=== PATIENT | female | born 1985 | race African-American/Black ===

== ENCOUNTER 2017-08-23 16:52 | Emergency (ER) ==
[2017-08-23 16:57] VITALS: BMI 36.9
[2017-08-23 18:55] LABS: BASOPHILS % (AUTO) 0.2 % (0.0-3.0); EOSINOPHILS # (AUTO) 0.2 K/ul (0.0-0.7); EOSINOPHILS % (AUTO) 1.7 % (0.0-7.0); HEMATOCRIT 39.9 % (37.0-47.0); HEMOGLOBIN 13.3 g/dl (12.0-16.0); IMMATURE GRANULOCYTE % (AUTO) 0.3 % (0.0-5.0); LYMPHOCYTES # (AUTO) 2.4 K/uL (0.60-3.4); MEAN CORPUSCULAR HEMOGLOBIN 30.1 pg (27.0-31.0); MEAN CORPUSCULAR HGB CONC 33.3 (31.8-35.4); MEAN CORPUSCULAR VOLUME 90.3 fl (81.0-99.0); MONOCYTES # (AUTO) 0.7 K/uL (0.4-2.0); NEUTROPHILS # (AUTO) 6.5 K/ul (2.0-6.9); NEUTROPHILS % (AUTO) 66.8; PLATELET COUNT 321 10^3/uL (140-440); RED BLOOD COUNT 4.42 10^6/ul (4.20-5.40); WHITE BLOOD COUNT 9.79 K/ul (4.6-10.2)
[2017-08-23 19:06] LABS: BILIRUBIN,URINE Negative (NEGATIVE); KETONES,URINE Negative (NEGATIVE); LEUKOCYTE ESTERASE ,URINE Negative (NEGATIVE); NITRITE,URINE Negative (NEGATIVE); PH,URINE 5.5 (5-9); PROTEIN,URINE Negative (NEGATIVE); URINE, BLOOD Negative (NEGATIVE)
[2017-08-23 19:09] LABS: URINE PREGNANCY INTERNAL QC INTERNAL QC VALID
[2017-08-23 19:10] LABS: ADD URINE MICROSCOPIC NO
[2017-08-23 19:12] LABS: ALBUMIN 3.6 g/dL (3.4-5.0); ALBUMIN/GLOBULIN RATIO 0.92; ANION GAP 12.8; BILIRUBIN,TOTAL 0.31 mg/dL (0.00-1.20); BUN/CREATININE RATIO 9.19; CALCIUM 9.7 mg/dL (8.2-10.2); CREATININE 0.87 mg/dL (0.60-1.30); POTASSIUM 3.8 mmol/L (3.5-5.10); TOTAL PROTEIN 7.5 g/dL (6.4-8.2)
[2017-08-23 19:24] LABS: ERYTHROCYTE SEDIMENTATION RATE 24 mm/hr (0-20); ESR INTERNAL QC INTERNAL QC VALID
--- NOTE | 2017-08-23 19:48 | CT ---
EXAM: Noncontrast CT of the abdomen and pelvis. HISTORY: Left lower quadrant pain. COMPARISON: None. TECHNIQUE: Contiguous axial images at 3 mm intervals were obtained from lung bases through the pelvi s. No contrast was given. Coronal reformats were reviewed. FINDINGS: The study is limited without contrast. CHEST: The lung bases show no lobar consolidation or effusion. The heart size is within normal limi ts. ABDOMEN: Evaluation of the soft tissue organs is limited without contrast. LIVER: Noncontrast images of the liver show no solid mass lesion or intrahepatic ductal dilatation. BILIARY: The gallbladder is normally distended. No gallstones are noted. No pericholecystic fluid or inflammation. The common bile duct is normal. SPLEEN: The spleen is unremarkable. PANCREAS: The pancreas shows no mass lesion or peripancreatic inflammation. ADRENAL GLANDS: The adrenal glands are normal. RENAL: The kidneys show no hydronephrosis or nephrolithiasis. There are no obstructing ureteral sto sammie. No solid mass lesions are identified. RETROPERITONEUM: The aorta is unopacified. No aneurysm is identified. No aortic calcifications are seen. There is no retroperitoneal or mesenteric adenopathy. BOWEL: The bowel is unopacified which limits evaluation. The cecum extends into the deep pelvis, pos terior to the bladder and uterus. The appendix appears enlarged measuring up to 16 mm with an append icolith. Surround inflammatory changes are seen. The appendix appears to extend to the left side of the pelvis. However, there are unopacified loops of small bowel in this area which makes identifica tion of the appendix. There is a trace of fluid in the deep pelvis with no evidence of abscess forma tion. There is no free air. PELVIS: BLADDER: The bladder is well distended and appears normal. GENITOURINARY STRUCTURES: The uterus and ovaries are unremarkable. OSSEOUS STRUCTURES: The osseous structures are normal for age. IMPRESSION 1. Limited study without IV and enteric contrast. 2. The cecum extends into the deep pelvis, posterior to the uterus and bladder. The appendix appear s extensive left side is enlarged measuring up to 1.7 cm with an appendicolith. On the sagittal view, this appears to be separate from the adjacent small bowel loops. There is some surrounding inflammat ion. There are loops of small bowel in this area which limit evaluation. 3. Trace amount of free fluid the deep pelvis. Critical result: Appendicitis. The appendix is located in the left side of the pelvis. These findings were discussed with Dr. Sanford on 08/23/2017 at 7:41 p.m.
--- NOTE | 2017-08-23 19:48 | ED.PDOC ---
General ED Provider: Dr. ROSSANA VELASCO-ER Chief Complaint: Back Pain Stated Complaint: narinder been hurting on my left side into my back for 4 days Time Seen by Physician: 16:55 Mode of Arrival: Walk-In Information Source: Patient Exam Limitations: No limitations Nursing and Triage Documentation Reviewed and Agree: Yes GI Complaint Exam - Abdominal Pain Complaint/Exam Onset: Gradual Duration: 4 days Symptoms Are: Still present Timing: Intermittent Initial Severity: Mild Current Severity: Mild Location of Pain: Discrete, LLQ Radiates To: Reports: Back Character: Reports: Dull, Aching, Cramping Alleviating: Reports: None Associated Signs and Symptoms: Reports: Back pain, Decreased appetite, Nausea, Decreased activity. Denies: Diaphoresis, Fever, Cough, Chest pain, Dizziness, Constipation, Blood in stool, Dysuria, Urinary frequency, Decreased urine output , Vaginal bleeding, Vaginal discharge, Vomiting, Diarrhea, Sore throat Ovarian Torsion Risk Factors: Reports: Reproductive age Surgical Obstruction Risk Factors: Reports: Prior abdominal surgery (she has no details--?[facility]) Patient Rh Status: Unknown Differential Diagnoses: Appendicitis, Constipation, Pancreatitis, Ureteral Stone , UTI, Ovarian Cyst Review of Systems - Review Of Systems Constitutional: Reports: No symptoms Eyes: Reports: No symptoms Ears, Nose, Mouth, Throat: Reports: No symptoms Respiratory: Reports: No symptoms Cardiac: Reports: No symptoms GI: Reports: Abdominal pain, Nausea : Reports: No symptoms Musculoskeletal: Reports: No symptoms Skin: Reports: No symptoms Neurological: Reports: No symptoms Endocrine: Reports: No symptoms Hematologic/Lymphatic: Reports: No symptoms All Other Systems: Reviewed and Negative Past Medical History - Past Medical History Previously Healthy: Yes Endocrine: Reports: None Cardiovascular: Reports: None Respiratory: Reports: None Hematological: Reports: None Gastrointestinal: Reports: None Genitourinary: Reports: None Neuro/Psych: Reports: None Musculoskeletal: Reports: None Cancer: Reports: None Last Menstrual Period: 3 WEEKS AGO - Surgical History General Surgical History: Reports: Lap Band - Family History Family History: Reports: Unknown - Social History Smoking Status: Current every day smoker, Heavy tobacco smoker Hx Substance Use: No Alcohol Screening: Occasionally Lives: With family Physical Exam - Physical Exam Appearance: Well-appearing, No pain distress, Well-nourished Pain Distress: Mild Eyes: JENNY, EOMI, Conjunctiva clear ENT: Ears normal, Nose normal, Oropharynx normal Neck: Supple Respiratory: Airway patent, Breath sounds clear, Breath sounds equal, Respirations nonlabored Cardiovascular: RRR, Pulses normal, No rub, No murmur GI/: Soft, Nontender, No masses, Bowel sounds normal, No Organomegaly, Tender Musculoskeletal: Normal strength Skin: Warm, Dry, Normal color Neurological: Sensation intact, Motor intact, Reflexes intact, Cranial nerves intact, Alert, Oriented Psychiatric: Affect appropriate, Mood appropriate, Anxious Interpretation - Radiology Interpretation Radiology Interpretation By: Radiologist Radiology Results: Positive Exam Interpreted: CT Scan ("left sided appendicitis") Re-Evaluation - Re-Evaluation Time of Re-Evaluation: 19:49 Status: Unchanged Vital Signs Stable: Yes Pain Level: 1 Appearance: NAD Lungs: Clear Skin: Warm and Dry Neuro: Alert and Oriented X3 CV: RRR Physician Notification - Case Discussed Physician Notified: dr carlos---accepted for the er Time of Notification: 19:57 Critical Care Note - Critical Care Note Total Time (mins): 0 Course - Course Hematology/Chemistry: 08/23/17 18:49 08/23/17 18:49 Orders, Labs, Meds: Lab Review 08/23/17 08/23/17 08/23/17 18:49 18:49 18:49 WBC 9.79 RBC 4.42 Hgb 13.3 Hct 39.9 MCV 90.3 MCH 30.1 MCHC 33.3 RDW Coeff of Antoine 13.7 Plt Count 321 Immature Gran % (Auto) 0.3 Neut % (Auto) 66.8 Lymph % (Auto) 24.0 [place] % (Auto) 7.0 Eos % (Auto) 1.7 Baso % (Auto) 0.2 Immature Gran # (Auto) 0.0 Neut # 6.5 Lymph # 2.4 [place] # 0.7 Eos # 0.2 Baso # 0.0 ESR 24 H Sodium 139 Potassium 3.8 Chloride 105 Carbon Dioxide 25 Anion Gap 12.8 BUN 8 Creatinine 0.87 Estimated GFR (MDRD) 91.00 BUN/Creatinine Ratio 9.19 Glucose 94 Calcium 9.7 Total Bilirubin 0.31 AST 15 ALT 20 Alkaline Phosphatase 126 H Total Protein 7.5 Albumin 3.6 Globulin 3.9 Albumin/Globulin Ratio 0.92 Amylase 45 Lipase 19 Urine Color Urine Clarity Urine pH Ur Specific [place] Urine Protein Urine Glucose (UA) Urine Ketones Urine Blood Urine Nitrite Urine Bilirubin Urine Urobilinogen Ur Leukocyte Esterase Urine Test 08/23/17 08/23/17 18:55 18:55 WBC RBC Hgb Hct MCV MCH MCHC RDW Coeff of Antoine Plt Count Immature Gran % (Auto) Neut % (Auto) Lymph % (Auto) [place] % (Auto) Eos % (Auto) Baso % (Auto) Immature Gran # (Auto) Neut # Lymph # [place] # Eos # Baso # ESR Sodium Potassium Chloride Carbon Dioxide Anion Gap BUN Creatinine Estimated GFR (MDRD) BUN/Creatinine Ratio Glucose Calcium Total Bilirubin AST ALT Alkaline Phosphatase Total Protein Albumin Globulin Albumin/Globulin Ratio Amylase Lipase Urine Color Yellow Urine Clarity Clear Urine pH 5.5 Ur Specific [place] 1.025 Urine Protein Negative Urine Glucose (UA) Negative Urine Ketones Negative Urine Blood Negative Urine Nitrite Negative Urine Bilirubin Negative Urine Urobilinogen 0.2 Ur Leukocyte Esterase Negative Urine Test Negative Orders Category Date Time Status ED IV/MEDIPORT/POWERPORT .ONCE EMERGENCY 08/23/17 19:45 Active AMYLASE Stat LAB 08/23/17 18:49 Completed CBC W/ AUTO DIFF Stat LAB 08/23/17 18:49 Completed COMPREHENSIVE METABOLIC PANEL Stat LAB 08/23/17 18:49 Completed ESR Stat LAB 08/23/17 18:49 Completed LIPASE Stat LAB 08/23/17 18:49 Completed URINALYSIS C & S IF INDICATED Stat LAB 08/23/17 18:55 Completed URINE Stat LAB 08/23/17 18:55 Completed 0.9 % Sodium Chloride [Saline Flush] MEDS 08/23/17 19:45 Ordered 1 syr IVF PRN PRN CT ABDOMEN/PELVIS WO CONTRAST Stat RADS 08/23/17 18:43 Completed Medications Generic Name Dose Route Start Last Admin Trade Name Freq PRN Reason Stop Dose Admin Sodium Chloride 1 syr 08/23/17 19:45 Saline Flush IVF PRN PRN To flush IV Vital Signs: Temp Pulse Resp BP Pulse Ox 08/23/17 16:53 98.3 F 76 20 135/85 96 Departure - Departure Time of Disposition: 19:57 Disposition: TSF SHORT-TRM HOSP Discharge Problem: Appendicitis Qualifiers: Appendicitis type: acute appendicitis Acute appendicitis type: unspecified acute appendicitis type Qualified Code(s): K35.80 - Unspecified acute appendicitis Instructions: Abdominal Pain (ED) Condition: Good Pt referred to PMD for follow-up: Yes Allergies/Adverse Reactions: Allergies No Known Allergies Allergy (Verified 08/23/17 16:57) Home Medications: Ambulatory Orders 1 [No Reported Medications] 08/23/17 Transfer Form Completed: Yes Disposition Discussed With: Patient
[2017-08-23 20:07] VITALS: BP 121/81; TEMP 98.2
== END 2017-08-23 20:17 | disposition short-term general hospital (02) ==
LOC: ED 16:52
DX: K35.80 Unspecified acute appendicitis (principal); F17.210 Nicotine dependence, cigarettes, uncomplicated
CPT/HCPCS: 36415; 80053; 81001; 81025; 82150; 83690; 85025; 85651; 99285